=== PATIENT | female | born 2000 | race Caucasian/White ===

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

== ENCOUNTER 2024-08-06 18:59 | Emergency (ER) | payer OTHER ==
[~2024-08-06] VITALS: Ht 160 cm; Wt 127.3 kg
[2024-08-06 19:04] VITALS: BP 140/74; TEMP 98.3; O2SAT 100
[2024-08-06] MEDS ORDERED: FLON1SPR NARES (19:47)
[2024-08-06] MEDS ORDERED: PSEU30TA88 PO (19:47)
[2024-08-06] MEDS ORDERED: IBUP-1022 PO (19:47)
[2024-08-06] MEDS ORDERED: ZYRT10TA12 PO (19:47)
== END 2024-08-06 19:58 | disposition home or self-care (01) ==
LOC: M ED 18:59
DX: H65.03 Acute serous otitis media, bilateral (principal); F41.9 Anxiety disorder, unspecified; Z79.1 Long term (current) use of non-steroidal anti-inflammatories (NSAID); Z79.899 Other long term (current) drug therapy

== ENCOUNTER 2024-09-02 06:54 | Emergency (ER) | payer OTHER ==
[~2024-09-02] VITALS: Ht 160 cm; Wt 125.4 kg
[~2024-09-02 06:54] MED LIST changes: +FLON1SPR NARES; +IBUP-1022 PO; +PSEU30TA88 PO; +ZYRT10TA12 PO
[2024-09-02] MEDS: IBUPROFEN 600MG TAB PO ONE (09:49)
[2024-09-02] MEDS: ACETAMINOPHEN 500 MG TAB PO ONE (09:49)
[2024-09-02 10:45] VITALS: TEMP 100.3
[2024-09-02 10:56] VITALS: BP 117/63; O2SAT 92
== END 2024-09-02 10:57 | disposition home or self-care (01) ==
LOC: M ED 06:54
DX: J09.X2 Influenza due to identified novel influenza A virus with other respiratory manifestations (principal); F17.200 Nicotine dependence, unspecified, uncomplicated; F10.10 Alcohol abuse, uncomplicated; F12.10 Cannabis abuse, uncomplicated; Z79.1 Long term (current) use of non-steroidal anti-inflammatories (NSAID)

== ENCOUNTER → 2025-01-25 | Outpatient (REF) | payer OTHER ==
[2025-01-25 19:06] LABS: ALBUMIN 3.4 G/DL (3.2-5.2); ALKALINE PHOSPHATASE 59 U/L (35-104); ALT/SGPT 32 U/L (7.0-40); AST/SGOT 34 U/L (<34); BILIRUBIN,TOTAL 0.8 MG/DL (0.3-1.2); BLOOD UREA NITROGEN 8 MG/DL (9-23); CALCIUM LEVEL 9.1 MG/DL (8.5-10.1); CARBON DIOXIDE LEVEL 24 MMOL/L (20-31); CHLORIDE LEVEL 110 MMOL/L (98-107); CREATININE FOR GFR 0.68 MG/DL (0.55-1.30); GLOMERULAR FILTRATION RATE > 90.0 (>60); GLUCOSE, FASTING 82 MG/DL (60-100); POTASSIUM SERUM 4.1 MMOL/L (3.5-5.1); SODIUM LEVEL 141 MMOL/L (136-145); TOTAL PROTEIN 7.1 G/DL (5.7-8.2)
[2025-01-25 19:07] LABS: THYROID STIMULATING HORMONE 2.398 uIU/ML (0.55-4.78)
== END ==
LOC: M LAB REF 18:07
PROVIDERS: ATTEND Student in an Organized Health Care Education/Training Program
DX: Z68.42 Body mass index [BMI] 45.0-49.9, adult (principal)